=== PATIENT | male | born 1970 | race Caucasian/White ===

== ENCOUNTER 2023-03-01 10:02 | Emergency (ER) | payer BC, SELFPAY ==
[2023-03-01 10:04] VITALS: BP 157/96; PULSE 103; RESP 16; TEMP 37.2; O2SAT 96; BMI 29.3
--- NOTE | 2023-03-01 16:11 | ED.GENADULT ---
HPI - General Adult General Date Seen: 03/01/23 Chief complaint: Extremity Pain/Injury, Upper Stated complaint: lost circulation to finger Time Seen by Provider: 03/01/23 10:14 History of Present Illness HPI narrative: 52-year-old gentleman with a history of hypertension (on lisinopril, but otherwise healthy. Nonsmoker. He presents to the ER today for evaluation of pallor and ischemia involving his right index finger. He has noted that his index finger has been pale with dusky skin and slow cap refill for about 2 weeks. He does not really know what brought it on. No antecedent injury. We initially started the finger was achy and painful. It still feels ?funny? but is not really painful. It is not really numb but does not feel normal either. He is able to move it normally. No swelling. No other involved fingers or toes. He was seen in urgent care in [place] about 10 days ago for this. They were suspicious for possible Raynaud's phenomena. They did lab workup. He is able to show me some labs through his my chart on his phone. He had a normal CBC, mildly elevated creatinine on his BMP, mildly elevated TSH at 4.3. He had normal KIESHA. Normal PT. Normal INR. He was told that his finger ischemia might be Raynaud's disease and that he should keep this finger warm. He has been doing that very carefully but notes that the pallor does not change whether his finger is warm or cold. The pallor is not getting worse. Just not getting better. He tried to follow up with his regular doctor through [facility] earlier this week. He did have repeat labs that showed improvement in his kidney function. He was again told to keep his finger warm. Feeling frustrated with lack of diagnosis he has been trying to establish new primary care at a clinic in [place]. In trying to do that today he was told to come to the ER. He says he is not sure if he needs to be here, but his medical providers insisted that he come so he presented. He has no other known vascular disease. No history of heart stents or peripheral artery disease. No other involved digits or extremities. No history of strokes. He had a primary checkup last fall and was told that his cholesterol was okay. He is not on any cholesterol meds. He does not take aspirin. He does take his lisinopril for his blood pressure. Related Data Home Medications Medication Instructions Recorded Confirmed lisinopril 10 mg tablet 10 mg PO DAILY 03/01/23 03/01/23 Previous Rx's Medication Instructions Recorded aspirin 81 mg tablet,delayed 81 mg PO DAILY #30 tabs 03/01/23 release rosuvastatin 5 mg tablet 5 mg PO DAILY #30 tabs 03/01/23 Allergies Allergy/AdvReac Type Severity Reaction Status Date / Time No Known Drug Allergies Allergy Verified 03/01/23 10:22 [facility] Medical History (Updated 03/01/23 @ 11:57 by Hunter Benoit MD) Testicular cancer ?C62.90 - Malignant neoplasm of unspecified testis, unspecified whether descended or undescended (ICD-10) Hypertension ?I10 - Essential (primary) hypertension (ICD-10) Social History Smoking Status: Never smoker Do you use any of these nicotine containing products: None How often do you have a drink containing alcohol: 4 or more times a week How many standard drinks containing alcohol do you have on a typical day: 5 or 6 AUDIT-C Alcohol total score: 6 Non-prescribed substance use: denies use service: No Exam Narrative: Exam Narrative: Constitutional: Appears well-developed and well-nourished. Alert. Conversant. Non toxic. HENT: Head: Atraumatic. Nose: Nose normal. Mouth/Throat: Oral mucosa is clear and moist. no trismus. Eyes: Conjunctivae normal. EOM normal. Pupils equal, round, and reactive to light. No scleral icterus. Neck: Normal range of motion. Neck supple. No tracheal deviation present. Cardiovascular: Normal rate, regular rhythm. No gallop. No friction rub. No murmur heard. Symmetric radial artery pulses . Brisk cap refill in all digits of both hands except for his right 2nd digit (index finger). Right 2nd digit is slightly pale, with very delayed cap refill. The finger tip is slightly dusky and cyanotic. He has intact sensory function other than he says his finger for subjectively feels ?funny. ?. He has intact flexion and extension of the D IP, PIP, MCP. No swelling. No deformity. Normal cap refill in his hand. Strong radial pulse. Normal Alireza's test with brisk cap refill to all digits except for the index finger through both the radial and ulnar arteries. Proximally in the right upper extremity he has normal capillary refill. Strong brachial pulse. No arm swelling. Pulmonary/Chest: Effort normal. No stridor. No respiratory distress. No wheezes. No rales. No rhonchi . Abdominal: Soft. Bowel sounds normal. No distension. No mass. No tenderness. No rebound. No guarding. Musculoskeletal: RUE: Normal range of motion. No tenderness. No deformity LUE: Normal range of motion. No tenderness. No deformity RLE: Normal range of motion. No edema. No tenderness. No deformity LLE: Normal range of motion. No edema. No tenderness. No deformity Neurological: Alert and oriented to person, place, and time. Normal strength. CN II-VII intact. No sensory deficit. GCS eye subscore is 4. GCS verbal subscore is 5. GCS motor subscore is 6. Normal coordination Skin: Skin is warm and dry. No rash noted. No pallor. Normal capillary refill. Psychiatric: Normal mood. Normal affect. Const: Vital Signs, click to edit/add: Vital Signs - 24 hr 03/01/23 10:04 Temperature 98.9 F Pulse Rate [Pulse Oximeter] 103 H Respiratory Rate 16 Blood Pressure [Ri t Upper Arm] 157/96 H Pulse Oximetry 96 Oxygen Delivery Me thod Room Air Course Vital Signs Vital signs: Initial Vital Signs Temperature 98.9 F 03/01/23 10:04 Temperature Source Temporal Artery Scan 03/01/23 10:04 Pulse Rate 103 H 03/01/23 10:04 Respiratory Rate 16 03/01/23 10:04 Blood Pressure 157/96 H 03/01/23 10:04 Blood Pressure Mean 116 H 03/01/23 10:04 Blood Pressure Position Sitting 03/01/23 10:04 Pulse Oximetry 96 03/01/23 10:04 Oxygen Delivery Method Room Air 03/01/23 10:04 Vital Signs Temperature 98.9 F 03/01/23 10:04 Pulse Rate 103 H 03/01/23 10:04 Respiratory Rate 16 03/01/23 10:04 Blood Pressure 157/96 H 03/01/23 10:04 Pulse Oximetry 96 03/01/23 10:04 Oxygen Delivery Method Room Air 03/01/23 10:04 Temperature 98.9 F 03/01/23 10:04 Pulse Rate 103 H 03/01/23 10:04 Respiratory Rate 16 03/01/23 10:04 Blood Pressure 157/96 H 03/01/23 10:04 Pulse Oximetry 96 03/01/23 10:04 Oxygen Delivery Method Room Air 03/01/23 10:04 Medical Decision Making MDM Narrative Medical decision making narrative: Very pleasant 52-year-old man with the history of hypertension presents to the ER today with 2 week history of duskiness and pallor affecting his right index finger, and only his right index finger. He was seen in urgent care and told that it may be Raynaud's phenomenon. However he has not noted any fluctuating changes in color no matter if he keeps his finger warm or let us get colder. The duskiness is persistent. He try to establish care with a new primary care provider today, because he was dissatisfied with lack of diagnosis and progress so far. His new PCP sent him to the ER today. He says he came here because his doctor told him to do so but he does not really feel like his finger is getting worse than normal. On my exam he definitely has a dusky right index finger and this is suspicious for acute arterial ischemia of the index finger but no evidence for any other ischemic digits or limbs. No history of trauma or infection or other injury to the digit that would have affected the blood flow. At this point the finger is dusky, feels ?funny? but is not known and has intact motor function. It's been stable like this for about 2 weeks. At this point I do not think this represents an immediate digit threatening emergency. However I do think he needs expeditious workup. I feel the patient would benefit from CT angiogram of his right upper extremity to look for possible arterial cut offs in the digital arteries. Unfortunately this test is not available here in [facility] due to our equipment. We contacted [facility] and I discussed the case with Dr. Peterson mcarthur, vascular medicine. She agrees that the patient needs CTA and further workup fairly soon, but not on an emergent basis today. She will work with the vascular medicine clinic try to get this patient scheduled for consult within the next couple of days. In the meantime we will start the patient on baby aspirin. She indicates that if he has not had cholesterol test recently he should see his primary care provider and get a fasting cholesterol checked. He did have his cholesterol checked in November. LDL was mildly elevated and HDL was borderline low at 42. Based on the elevated LDL a a level with potential arterial disease here we will start him on a statin today. He understands that he needs to follow up with vascular medicine and his primary care for ongoing cholesterol management. He will continue on his current blood pressure meds. Patient verbalizes his understanding of the plan. He will be getting a phone call this afternoon from the vascular Medicine Clinic at [facility] and they will set him up for an expeditious outpatient appointment to get this workup done before this does become digit threatening ischemia. Precautions for ER return reviewed. Questions answered. Patient verbalizes understanding. Discharge Plan Discharge Clinical Impression: Ischemia of finger Patient Disposition: Home, Self-Care Condition: Stable Instructions: Peripheral Artery Disease (ED) Additional Instructions: We suspect that you probably have a cholesterol plaque or a blood clot partially blocking the blood flow through 1 of the arteries to your index finger. This is probably a version of ?peripheral artery disease? which is often related to cholesterol plaques and atherosclerosis. Please start taking baby aspirin and cholesterol medicine every day. I sent your prescriptions to her pharmacy in [place]. You should receive of come phone call from the vascular clinic at [place] this afternoon to arrange a follow-up appointment. If you do not receive a phone call by 2:00 p.m., call [phone] to the vascular medicine clinic at [place]. You can tell there schedulers that you were in the ER here at [facility] and that we spoke to Dr. Camejo, who wants you to be seen in clinic [facility]. They will also try to order an angiogram to check out the blood vessel in your arm and hand. Also please follow-up with your regular doctor to recheck your cholesterol and make sure your on the right cholesterol medications. If your finger gets worse come back to the ER or go to the ER at [facility] right away. Prescriptions: New rosuvastatin 5 mg tablet 5 mg PO DAILY Qty: 30 0RF aspirin 81 mg tablet,delayed release (DR/EC) 81 mg PO DAILY Qty: 30 0RF No Action lisinopril 10 mg tablet 10 mg PO DAILY Follow Up/Referrals: Provider,Not a Local [Primary Care Provider] - Stand Alone Forms: [facility] Info Instructions
== END 2023-03-01 12:02 | disposition home or self-care (01) ==
PROVIDERS: Emergency Provider Emergency Medicine
DX: I99.8 Other disorder of circulatory system (principal)
CPT/HCPCS: 99283

== ENCOUNTER 2023-10-25 10:12 | Outpatient (CLI) | payer BC, SELFPAY ==
--- OUTSIDE RECORDS SUMMARY | 2023-10-25 10:14 | XMS_ITS | Clinical Summary ---
Author Organization [facility] Address [address] [place] [id number] Care Team Providers Care Director Of Field Coordination Name Role Phone Candelario Davis M.D. Primary Care Provider + Source Comments Patient records contain information from all sites at [facility]. For routine questions regarding patient records, call [phone] during business hours, M-F 8:00 AM - 5:00 PM Central Time. Record requests for emergency care only can be directed to [phone] at any time.[facility] Allergies No known active allergies Medications Medication Sig Dispensed Refills Start Date End Date Status lisinopriL (PRINIVIL,ZESTRIL) 10 mg tabletIndications:Hy pertension Essential Primary Take 1 tablet (10 mg total) by mouth daily. 90 tablet 3 02/16/2022 Active ALPRAZolam (XANAX) 0.25 mg tablet Take 1 tablet 30 minutes before flight. 8 tablet 02/16/[address] tablet Take 1 tablet by mouth daily. 03/02/2023 Active amLODIPine (NORVASC) 5 mg tablet Take 1 tablet (5 mg total) by mouth daily. 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 from Last 3 Months Immunizations Name Administration Dates Next Due DTaP (Infanrix, [employer]) 01/06/2007 HepB Adult 07/15/2013,02/09/2013,01/05/2013 Tdap 11/22/2016,01/06/2007 Family History Medical History Relation Name Comments Diabetes Father Sleep apnea Father Heart disease Maternal Grandmother Deceas ed at 62 Cancer Paternal Grandmother Relation Name Status Comments Father Maternal Grandmother Paternal Grandmother Social History Tobacco Use Types Packs/Day Years Used Date Smoking Tobacco: Never Smokeless Tobacco: Never Alcohol Use Standard Drinks/Week Comments Yes 4 (1 standard drink = 0.6 oz pur e alcohol) [facility] Utilities Answer Date Recorded In the past 12 months has e electric, gas, oil, or water company threatened to shut off services in your home? Patient declined 03/05/2023 Humiliation, Afraid, Rape, and Kick questionnair e Answer Date Recorded Fear of Current or Ex-Partner No Emotionally Abused No 01/08/2019 Physically Abused No 01/08/2019 Sexually Abused No 01/08/2019 Social Connection and Isolation Panel [NHANES] A nswer Date Recorded Frequency of Communication with Friends and Fami ly Once a week 01/08/2019 Frequency of Social Gatherings with Friends and Family Once a week 01/08/2019 Attends Confucianist Services Never 01/08 Active Member of Clubs or Organizations No 01/08/2019 Attends Club or Organization Meetings Never 01/08/2019 Marital Status 01/08/2019 AUDIT-C Answer Date Recorded Frequency of Alcohol Consumption 2-3 times a wee k 01/08/2019 Average Number of Drinks 3 or 4 019 Frequency of Binge Drinking Weekly 12/11 Overall Financial Resource Strain (CARDIA) Answe r Date Recorded Difficulty of Paying Living Expenses Not hard at all 01/08/2019 PHQ-2 Answer Date Recorded PHQ-2 Score 0 02/16/2022 Exercise Vital Sign Answer Date Recorde d On average, how many days pe r week do you engage in moderate to strenuous exercise (like a brisk walk)? Patient declined On average, how many minutes do you engage in exercise at this level? Patient declined 03/05/2023 Hunger Vital Sign Answer Date Recorded Within the past 12 months, y ou worried that your food would run out before you got the money to buy more. Patient declined Within the past 12 months, t he food you bought just didn't last and you didn't have money to get more. Patient declined PRAPARE - Transportation Answer Date Re corded In the past 12 months, has l ack of transportation kept you from medical appointments or from getting medications? Patient declined 03/05/2023 In the past 12 months, has l ack of transportation kept you from meetings, work, or from getting things needed for daily living? Patient declined 03/05/2023 Nutrition Answer Date Recorded Nutrition: EVOO Fat Source Unknown 05/11 Nutrition: Servings of Fruits/Vegetables per Day Not on file 05/11/2020 Dental Answer Date Recorded Dental: Regular Dentist Unknown 05/12/19 21 Housing Stability Answer Date Recorded What is your living situation today? Patient dec lined 03/05/2023 Education Answer Date Recorded What is the highest level of school you have completed or the highest degree you have received? 12th grade 01/08/2019 Sex and Gender Information Value Date Recorded Sex Assigned at Male 02/16/2022 9:14 AM [employer] Gender Identity Not on file Sexual Orientation Not on file Last Filed Vital Signs Vital Sign Reading Time Taken Comments Blood Pressure 128/90 03/08/2023 10:46 AM [employer] Pulse 96 03/08/2023 10:46 AM [employer] Temperature 36.8 ??C (98.2 ??F) 03/07/2023 1:35 PM CS T Respiratory Rate 16 03/07/2023 1:35 PM [employer] Oxygen Saturation 94% 03/07/2023 2:30 PM [employer] Inhaled Oxygen Concentration - - Weight 97.5 kg (214 lb 15.2 oz) 023 10:44 AM [employer] Height 181.1 cm (5' 11.3) 03/06/2023 7:44 AM CS T Body Mass Index 29.73 03/06/2023 7:44 AM [employer] Plan of Treatment Health Maintenance Due Date Last Done Comments CT Colonography 1970 Cologuard 1970 FIT 1970 HIV Screening 1970 Hepatitis C Screening 1970 COVID-19 Vaccine (#1) 05/13/1975 Pneumococcal vaccine (0-64 years) (1 of 2 - PCV) 1976 Zoster Vaccines (1 of 2) 1989 Visit: Chronic Disease, age 18+ 02/16/2023 02/16/2022 Depression Screening (Annual PHQ-2) 03/11/2023 Office Visit for Blood Pressure Check / Re-check 06/07/2023 03/08/2023 Influenza Vaccine (#1) 2023 Creatinine Level (Kidney Function Test) 02/23/2024 02/22/2023, 02/19/2023, 03/02/2022, Additional history exists Potassium Level 02/23/2024 02/22/2023, 02/08, 03/02/2022, Additional history exists Sodium Level 02/23/2024 02/22/2023, 02/08, 03/02/2022, Additional history exists Colonoscopy 12/07/2025 12/07/2022 Colorectal Cancer Screening 12/07/2025 Fasting Glucose for Diabetes Screening 02/22/2026 02/22/2023, 02/19/2023, 11/30/2022, Additional history exists DTaP,Tdap,and Td Vaccines (4 - Td or Tdap) 11/22/2026 11/22/2016, 01/06/2007, 01/06/2007 Lipid (Cholesterol) Screening 12/01/2027 11/30/2022, 01/11/2020, 08/25/2015 Hepatitis B Vaccines Completed 07/15/2013, 02/09/2013, 01/05/2013 HPV Vaccines Aged Out No longer eligi ble based on patient's age to complete this topic Procedures Procedure Name Priority Date/Time Associated Diagnosis Comments BASIC METABOLIC PANEL, S/P Routine 02/22/2023 2:24 PM [employer] Monitoring For Therapeutic Drug Therapy LIPID PANEL, S Routine 11/30/2022 9:31 AM CDT Hypertension Essential Primary from Last 3 Months or Most Recently Relevant to Health Maintenance Results * Basic Metabolic Panel (02/22/2023 2:24 PM [employer]) Potassium, P 4.8 3.6 - 5.2 mmol/L 02/22/2023 3:06 PM [employer] Sodium, P 140 135 - 145 mmol/L 02/22/2023 3:06 PM [employer] Chloride, P 102 98 - 107 mmol/L 02/22/2023 3:06 PM [employer] Bicarbonate, P 26 22 - 29 mmol/L 02/22/2023 3:06 PM [employer] Anion Gap, P 12 7 - 15 02/22/2023 3:06 PM [employer] BUN (Blood Urea Nitrogen), P 16 8 - 24 mg/dL 02/22/2023 3:06 PM [employer] Creatinine 1.18 0.74 - 1.35 mg/dL 02/22/2023 3:06 PM [employer] Estimated GFR (eGFR) 74 >=60 mL/min/BSA 02/22/2023 3:06 PM [employer]AT Comment: Estimated GFR calculated using the 2020 CKD_EPI creatinine equation. Calcium, Total, P 9.5 8.6 - 10.0 mg/dL 02/22/2023 3:06 PM [employer] Glucose, P 99 70 - 140 mg/dL 02/22/2023 3:06 PM [employer] Blood (Blood, Venous) 02/22/2023 2:24 PM F[employer]URE [employer]ER 02/22/2023 2:31 PM [employer] Candelario Davis M.D. LAB BLOOD ADD-ON [facility] [address] [place] [id number], [facility] OW[facility] [address], [place] [address] * (ABNORMAL) Lipid Panel (11/30/2022 9:31 AM CDT) Triglycerides 202(H) mg/dL 11/30/2022 12:31 PM CDT OWAT Comment: ----REFERENCE VALUE---- Normal: <150 mg/dL Borderline High: 150-199 mg/dL High: 200-499 mg/dL Very High: > or =500 mg/dL Cholesterol, Total 249(H) mg/dL 2022 12:31 PM CDT OWAT Comment: ----REFERENCE VALUE---- Desirable: < 200 mg/dL Borderline High: 200 - 239 mg/dL High: > or = 240 mg/dL Cholesterol, LDL, Calculated 169(H) mg/dL 11/30/2022 12:31 PM CDT OWAT Comment: ----REFERENCE VALUE---- Desirable: <100 mg/dL Above Desirable: 100-129 mg/dL Borderline High: 130-159 mg/dL High: 160-189 mg/dL Very High: >=190 mg/dL ----ADDITIONAL INFORMATION---- LDL cholesterol calculated using the Garvey/NIH equation. Cholesterol, HDL 42 >=40 mg/dL 12/01/19 12:31 PM CDT OWAT Cholesterol, Non-HDL, Calculated 207(H) mg/dL 11/30/2022 12:31 PM CDT OWAT Comment: ----REFERENCE VALUE---- Desirable: <130 mg/dL Above Desirable: 130-159 mg/dL Borderline High: 160-189 mg/dL High: 190-219 mg/dL Very High: > or =220 mg/dL Fasting (8 HR or more) Yes 11/30/2022 11:15 AM CDT OWAT Blood (Blood, Venous) 11/30/2022 9:31 AM CDT 11/30/2022 11:15 AM CDT Candelario Davis M.D. LAB BLOOD ADD-ON [facility] [address] [place] [address], [facility] OWAT [facility] [address] [place] [address] from Last 3 Months or Most Recently Relevant to Health Maintenance Care Teams Director Of Field Coordination Relationship Specialty Start Date End Date Candelario Davis M.D. NPCarie: [phone] [address] [place] [id number] PCP - General 08/23/16
--- OUTSIDE RECORDS SUMMARY | 2023-10-25 10:15 | XMS_ITS | Clinical Summary ---
Author Organization [facility] Address [place], [place] [address] Care Team Providers Care Cafe Assistant Name Role Phone Candelario Davis MD Primary Care Provide r Allergies No known active allergies Medications Medication Sig Dispensed Refills Start Date End Date Status lisinopriL (PRINIVIL; ZESTRIL) 10 mg tablet Take 10 mg by mouth once daily. 02/16/2022 Active Social History Tobacco Use Types Packs/Day Years Used Date Smoking Tobacco: Never Smokeless Tobacco: Never Alcohol Use Standard Drinks/Week Comments Yes 0 (1 standard drink = 0.6 oz pur e alcohol) once in a while Sex and Gender Information Value Date Recorded Sex Assigned at Not on file Gender Identity Not on file Sexual Orientation Not on file Obstetrics History Last Filed Vital Signs Vital Sign Reading Time Taken Comments Blood Pressure 124/87 12/07/2022 12:02 PM CDT Pulse 88 12/07/2022 12:02 PM CDT Temperature 36.7 ??C (98.1 ??F) 12/07/2022 11:32 AM C DT Respiratory Rate 18 12/07/2022 12:02 PM CDT Oxygen Saturation 98% 12/07/2022 12:02 PM CDT Inhaled Oxygen Concentration - - Weight 91 kg (200 lb 11.2 oz) 12/07/2022 10:27 A M CDT Height 178.4 cm (5' 10.24) 11/28/2022 10:40 AM CDT Body Mass Index 28.6 11/28/2022 10:40 AM CDT Plan of Treatment Health Maintenance Due Date Last Done Comments Tdap 1981 Depression screening for age 12+ 1982 HIV for age 15-65 1985 BMI (ht and wt on same day) for age 18+ 1988 Hepatitis C screening for ag e 18-79 1988 Tetanus booster 1990 Lipids for age 45-75 05/13/2015 Zoster (shingles) series for age 50+ (1 of 2) 2020 COVID-19 vaccine series (2022-24 season) 2022 Influenza for age 50-64 11/10/2023 Colonoscopy through age 75 12/07/2032 12/07/2022 Pneumococcal series for age 6-64 Aged Out No longer eligible based on patient's age to complete this topic Procedures Procedure Name Priority Date/Time Associated Diagnosis Comments COLONOSCOPY 12/07/2022 11:01 AM CDT from Last 3 Months or Most Recently Relevant to Health Maintenance Results * COLONOSCOPY (12/07/2022 11:01 AM CDT) 12/07/2022 11:0 1 AM CDT Narrative Transcriptions FromRichard singh MD - 12/07/2022 11:31 AM CDT Patient Name: Kenn Koch Procedure Date: 12/07/2022 Gender: Male Date of : 1970 Admit Type: Ambulatory Procedure: Colonoscopy Proceduralist: Charlie Barahona MD [facility] Referring MD: Charlie Barahona MD Indications/Pre-Op Diagnosis: Screening for colorectal malignantneoplasm Medications: Monitored Anesthesia Care Procedure Description: The procedure, indications, potential complications, (bleeding, perforation, infection, adverse medication reaction, missed lesionsor polyps) and alternatives available were explained to the patient, who appeared to understand and indicated this. Opportunity for questionswas provided and informed consent obtained. The endoscope [id number]-[id number] was passed through the anus andadvanced to the cecum, identified by appendiceal orifice and ileocecal valve.The colonoscopy was performed with ease. The patient tolerated theprocedure well. The quality of the bowel preparation was evaluated using theBBPS (Swan Bowel Preparation Scale) with scores of: Right Colon = 3, Transverse Colon = 3 and Left Colon = 3 (entire mucosa seen well withno residual staining, small fragments of stool or opaque liquid). Thetotal BBPS score equals 9. Complications: No immediate complications. Estimated Blood Loss & Specimen: Estimated blood loss was minimal. Specimen collected: Yes and sent to Laboratory Findings: The perianal and digital rectal examinations were normal. Pertinent negatives include normal sphincter tone. Normal appearing ileocecal valve Two sessile polyps were found in the ascending colon. The polyps were3 to 6 mm in size. These polyps were removed with a cold snare.Resection and retrieval were complete. Four sessile polyps were found in the transverse colon. The polypswere 4 to 7 mm in size. These polyps were removed with a cold snare. Resection and retrieval were complete. Two sessile polyps were found in the descending colon. The polypswere 3 to 6 mm in size. These polyps were removed with a cold snare.Resection and retrieval were complete. Multiple medium-mouthed diverticula were found in the sigmoid colonand descending colon. The exam was otherwise without abnormality on direct and retroflexion views. Impressions/Post-Op Diagnosis: - Two 3 to 6 mm polyps in the ascending colon, removed with a cold snare. Resected and retrieved. - Four 4 to 7 mm polyps in the transverse colon, removed with a cold snare. Resected and retrieved. - Two 3 to 6 mm polyps in the descending colon, removed with a cold snare. Resected and retrieved. - Diverticulosis in the sigmoid colon and in the descending colon. - The examination was otherwise normal on direct and retroflexionviews. Recommendation: - Await pathology results. - Dr. Barahona's office will contact you with biopsy/pathology results when available. Moderate Sedation: Deep sedation per anesthesia. Charlie Barahona MD 12/07/2022 11:31:09 AM This report has been signed electronically. Note Initiated On: 12/07/2022 11:01 AM Richard Barahona MD PROCEDURE ORD from Last 3 Months or Most Recently Relevant to Health Maintenance Advance Directives * Full Code (Latest Code Status on File) Date Activated Date Inactivated Comments 12/07/2022 10:15 AM 12/07/2022 2:19 PM Question Answer Comments Code Status Discussion: Reviewed Preferences Care Teams Cafe Assistant Relationship Specialty Start Date End Date Candelario Davis MD [address] [place] [address] PCP - General Family Practice 05/13/17
--- OUTSIDE RECORDS SUMMARY | 2023-10-25 10:15 | XMS_ITS ---
Author Organization [facility] Address [address] [place] [address] Care Team Providers Care System Administration Manager Name Role Phone Candelario Davis M.D. 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 Past Plans No past plan information found. Radiation Treatments * No radiation treatments are documented for this patient in [facility]. Treatments may have been administered in another system. Lifetime Dose Tracking * Chemical Lifetime Dose Automatic Entry Manual Entr y Radiation 128.19 mGy 128.19 mGy 0 mGy Fluoro Time 13.77 minutes 13.77 minutes 0 minutes DAP (uGy-m2) 3,615.74 uGy-m2 3,615.74 uGy-m2 0 uGy-m2
--- OUTSIDE RECORDS SUMMARY | 2023-10-25 10:15 | XMS_ITS | Encounter Summary ---
Author Organization [facility] Address [address] [place] [address] Care Team Providers Care Wellness Spa Manager Name Role Phone Candelario Davis M.D. Primary Care Provider + Reason for Referral * Outpatient (Routine) - Authorized Specialty Diagnoses / Procedures Referred By Contac t Referred To Contact Candelario Davis M.D. [address], [place] [address] [facility] Referral ID Status Reason Start Date Expiration Date V isits Requested Visits Authorized [id number] Authorized 10/15/2023 04/15/2025 1 1 Encounter Details Date Type Department Care Team (Late st Contact Info) Description 10/15/2023 Orders Only [facility] Candelario Davis M.D. [address], [place] [address] Social History Tobacco Use Types Packs/Day Years Used Date Smoking Tobacco: Never Smokeless Tobacco: Never Alcohol Use Standard Drinks/Week Comments Yes 4 (1 standard drink = 0.6 oz pur e alcohol) [facility] Utilities Answer Date Recorded In the past 12 months has [employer] electric, gas, oil, or water company threatened [...] and Family Once a week 01/08/2019 Attends [employer] Services Never 01/08 Active Member of Clubs [...] Sex Assigned at Male 02/16/2022 9:14 AM DEHORNER Gender Identity Not on file Sexual Orientation Not on file documented as of this encounter Plan of Treatment Scheduled Referrals Name Type Priority Associated Diagnoses Orde r Schedule Primary Care nurse visit (clinic) - [facility] Region; BP check; BP check only (PRODUCT CONTROLLER) Outpatient Referral Routine Expected: 10/29/2023, Expires: 04/12/2024 documented as of this encounter Visit Diagnoses Not on filedocumented in this encounter Care Teams Wellness Spa Manager Relationship Specialty Start Date End Date Candelario Davis M.D. [address] [place] [address] PCP - General 08/23/16 documented as of this encounter
--- OUTSIDE RECORDS SUMMARY | 2023-10-25 10:15 | XMS_ITS | Referral Summary ---
Author Organization [facility] Address [address] [place] [address] Care Team Providers Care Rehab Department Manager Name Role Phone Candelario Davis M.D. Primary Care Provider + Source Comments Patient records contain information from all sites at [facility]. For routine questions regarding patient records, call [phone] during business hours, M-F 8:00 AM - 5:00 PM Central Time. Record requests for emergency care only can be directed to [phone] time[address] Encounters Date Type Department Care Team Description 10/15/2023 Orders Only [facility] Candelario Davis M.D. from Last 3 Months Allergies No known active allergies Medications Medication [...] dominal 08/28/2005 Malignant Neoplasm Of Testis 08/23/2005 Immunizations Name Administration Dates Next Due DTaP (Infan[employer], [employer]) 01/06/2007 HepB Adult 07/15/2013,02/09/2013,01/05/2013 Tdap 11/22/2016,01/06/2007 Social History Tobacco Use Types Packs/Day Years Used Date Smoking Tobacco: Never Smokeless Tobacco: Never Alcohol Use Standard Drinks/Week Comments Yes 4 (1 standard drink = 0.6 oz pur e alcohol) [facility] Utilities Answer Date Recorded In [...] and Family Once a week 01/08/2019 Attends [employer] Never 01/08 Active Member of Clubs [...] Date Recorded Dental: Regular Dentist Unknown 05/12/19 Housing Stability Answer Date Recorded What is your living situation today? Patient dec lined 03/05/2023 Education Answer Date Recorded What is the highest level of school you have completed or the highest degree you have received? 12th grade 01/08/2019 Sex and Gender Information Value Date Recorded Sex Assigned at Male 02/16/2022 9:14 AM PARKING LOT ATTENDANT AND CASHIER Gender Identity Not on file Sexual Orientation Not on file Last Filed Vital Signs Vital Sign Reading Time Taken Comments Blood Pressure 128/90 03/08/2023 10:46 AM PARKING LOT ATTENDANT AND CASHIER Pulse 96 03/08/2023 10:46 AM PARKING LOT ATTENDANT AND CASHIER Temperature 36.8 ??C (98.2 ??F) 03/07/2023 1:35 PM CS T Respiratory Rate 16 03/07/2023 1:35 PM PARKING LOT ATTENDANT AND CASHIER Oxygen Saturation 94% 03/07/2023 2:30 PM PARKING LOT ATTENDANT AND CASHIER Inhaled Oxygen Concentration - - Weight 97.5 kg (214 lb 15.2 oz) 023 10:44 AM PARKING LOT ATTENDANT AND CASHIER Height 181.1 cm (5' 11.3) 03/06/2023 7:44 AM CS T Body Mass Index 29.73 03/06/2023 7:44 AM PARKING LOT ATTENDANT AND CASHIER Plan of Treatment Not on file Procedures Procedure Name Priority Date/Time Associated Diagnosis Comments BASIC METABOLIC PANEL, S/P Routine 02/22/2023 2:24 PM PARKING [employer] ATTENDANT AND CASHIER Monitoring For Therapeutic Drug Therapy LIPID PANEL, S Routine 11/30/2022 9:31 AM CDT Hypertension Essential Primary from Last 3 Months or Most Recently Relevant to Health Maintenance Results * Basic Metabolic Panel (02/22/2023 2:24 PM PARKING LOT ATTENDANT AND CASHIER) Potassium, P 4.8 3.6 - 5.2 mmol/L 02/22/2023 3:06 PM PARKING [employer] ATTENDANT AND CASHIER OWAT Sodium, P 140 135 - 145 mmol/L 02/22/2023 3:06 PM [employer]ARKING [employer] ATTEND[employer] AND CASHIER [employer] Chloride, P 102 98 - 107 mmol/L 02/22/2023 3:06 PM [employer]ARKING [employer] ATTEND[employer] AND CASHIER [employer] Bicarbonate, P 26 22 - 29 mmol/L 02/22/2023 3:06 PM [employer]ARKING [employer]END[employer] C[employer] Anion Gap, P 12 7 - 15 02/22/2023 3:06 PM [employer]ARKING [employer] ATTEND[employer] AND CASHIER [employer] BUN (Blood Urea Nitrogen), P 16 8 - 24 mg/dL 02/22/2023 3:06 PM [employer]ARKING [employer] ATTEND[employer] AND CASHIER [employer]AT Creatinine 1.18 0.74 - 1.35 mg/dL 02/22/2023 3:06 PM [employer]ARKING [employer] ATTEND[employer] AND CASHIER [employer]AT Estimated GFR (eGFR) 74 >=60 mL/min/BSA 02/22/2023 3:06 PM PARKING LOT ATTENDANT AND CASHIER OWAT Comment: Estimated GFR calculated using the 2020 CKD_EPI creatinine equation. Calcium, Total, P 9.5 8.6 - 10.0 mg/dL 02/22/2023 3:06 PM PARKING [employer] ATTEND[employer] AND CASHIER [employer]AT Glucose, P 99 70 - 140 mg/dL 02/22/2023 3:06 PM PARKING [employer] ATTENDANT AND CASHIER OWAT Blood (Blood, Venous) 02/22/2023 2:24 PM PARKING LOT ATTENDANT AND CASHIER 02/22/2023 2:31 PM PARKING LOT ATTENDANT AND CASHIER Candelario Davsi M.D. LAB BLOOD ADD-ON [facility] [address] [place] [address], [place] OWAT [facility] [address] [place] [address] * (ABNORMAL) Lipid Panel (11/30/2022 9:31 AM [...] CDT Candelario Davis M.D. LAB BLOOD ADD-ON [facility] [address] [place] [address], [place] OWAT [facility] [address] [place] [address] from Last 3 Months or Most Recently Relevant to Health Maintenance Care Teams Rehab Department Manager Relationship Specialty Start Date End Date Candelario Davis M.D. [address] [place] [phone] PCP - General 08/23/16
--- OUTSIDE RECORDS SUMMARY | 2023-10-25 10:15 | XMS_ITS ---
Author Organization [facility] Address [address] [place] [address] Care Team Providers Care Agricultural Engineering Technicians Name Role Phone Unavailable Unavailable Unavailable Surgery Details Not on file Complications Check Surgery Details section. Procedure Estimated Blood Loss Check Surgery Details section. Procedure Findings Check Surgery Details section. Procedure Specimens Taken Check Surgery Details section.
== END 2023-10-25 10:13 | disposition home or self-care (01) ==
PROVIDERS: PCP Family Medicine; Visit Provider Family Medicine
DX: Z12.5 Encounter for screening for malignant neoplasm of prostate (principal)
CPT/HCPCS: G0103

== ENCOUNTER 2024-11-13 10:11 | Outpatient (CLI) | payer BC, SELFPAY | END 2024-11-13 10:12 | disposition home or self-care (01) | PROVIDERS: PCP Family Medicine; Visit Provider Family Medicine | DX: I10 Essential (primary) hypertension (principal); Z12.5 Encounter for screening for malignant neoplasm of prostate | CPT/HCPCS: 80048; 80061; G0103 ==